=== PATIENT | female | born 1935 | race Two or more races ===

== ENCOUNTER 2021-06-29 07:40 | Inpatient (IN) | payer MEDICARE, OTHER ==
[~2021-06-29] VITALS: Ht 162.6 cm; Wt 65.3 kg
[~2021-06-29 07:40] MED LIST: AMLO5TAB88 PO; ATOR20TA65 PO; FURO40TA5 PO; GABA-529 PO; HYDR-4135 PO; ISOS60TA76 PO; LEVO125T8 PO; LOSA100T32 PO; NABU-137 PO; OCD PO; OMEP40CA20 PO; PRAV20TA57 PO; RANI150C12 PO; SITA1TAB8 PO
[2021-06-29] MEDS ORDERED: RIVA20TA PO (08:00)
[2021-06-29] MEDS ORDERED: [UNRECOGNIZED DRUG - OTHER] (08:00)
[2021-06-29] MEDS ORDERED: [UNRECOGNIZED DRUG - OTHER] (08:00)
[2021-06-29] MEDS ORDERED: [UNRECOGNIZED DRUG - OTHER] (08:00)
[2021-06-29] MEDS ORDERED: [UNRECOGNIZED DRUG - OTHER] (08:00)
[2021-06-29] MEDS ORDERED: MORPHINE SULFATE 4 MG/ML CPJ (NOT FOR IM USE) IV STA (08:19)
[2021-06-29] MEDS ORDERED: ONDANSETRON HCL 4MG/2ML INJ IV STA (08:19)
[2021-06-29 08:47] LABS: BASOPHILS % 0.6 % (0.0-2.0); EOSINOPHILS % 0.8 % (0.0-5.0); HEMATOCRIT. 24.7 % (36.0-48.0); LYMPHOCYTES % 8.9 % (20.0-50.0); MEAN CORPUSCULAR HEMOGLOBIN 28.6 pg (28.0-32.0); MEAN PLATELET VOLUME 8.9 fl (7.4-10.4); MONOCYTES % 5.4 % (2.0-8.0); NEUTROPHILS % 84.3 % (40.0-76.0); PLATELET 278 x1000/uL (130-400); RED BLOOD CELL COUNT 2.78 mill/uL (4.2-5.4); RED CELL DISTRIBUTION WIDTH 16.7 % (11.6-14.6)
[2021-06-29 08:58] LABS: CHLORIDE 98 mEq/L (98-107)
[2021-06-29] MEDS ORDERED: PIPERACILLIN/TAZ 3.375G PREMIX 50 ML IV ONE (10:15)
[2021-06-29] MEDS ORDERED: FUROSEMIDE 20MG/2ML VIAL IVP ONE (10:15)
[2021-06-29 10:41] LABS: AMYLASE 49 IU/L (25-115)
[2021-06-29] MEDS ORDERED: ASPIRIN 81MG TABLET PO ONE (11:15)
[2021-06-29] MEDS ORDERED: SODIUM POLYSTYRENE SULFONATE 15 G/60 ML BOT PO SCH (12:00)
[2021-06-29] MEDS: SODIUM CHLORIDE 0.9% 1,000 ML IV SCH (12:28)
[2021-06-29] MEDS ORDERED: FUROSEMIDE 40MG/4ML VIAL IVP NR (12:30)
[2021-06-29] MEDS ORDERED: PIPERACILLIN/TAZOBACTAM 3.375 G in DEXTROSE 5% WATER 50 ML IV SCH (14:00)
[2021-06-29 14:37] LABS: CLARITY URINE CLEAR (CLEAR); COLOR URINE YELLOW (YELLOW); KETONES URINE NEGATIVE (NEGATIVE); LEUKOCYTE ESTERASE URINE TRACE (NEGATIVE); NITRITE URINE NEGATIVE (NEGATIVE); OCCULT BLOOD URINE NEGATIVE (NEGATIVE); PROTEIN URINE TRACE (NEGATIVE); SPECIFIC GRAVITY URINE 1.015 (1.005-1.030); UROBILINOGEN URINE 0.2 E.U./dL (0.2-1.0)
[2021-06-29] MEDS ORDERED: DEXTROSE 50% WATER 50ML SYRINGE IV PRN (16:30)
[2021-06-29] MEDS: BLOOD SUGAR DIAGNOSTIC STRIP TEST SCH ×2 (17:59→23:23)
[2021-06-29] MEDS: INSULIN LISPRO 100 UNITS/ML SUBCUT SCH ×2 (18:20→23:26)
[2021-06-29] MEDS: PIPERACILLIN/TAZOBACTAM 3.375 G in DEXTROSE 5% WATER 50 ML IV SCH (21:14)
[2021-06-30] VITALS (9 sets, daily range): BP systolic 114–169; BP diastolic 50–69
[2021-06-30] MEDS ORDERED: NALOXONE HCL 0.4 MG/ML 1ML VIAL IV PRN (03:45)
[2021-06-30] MEDS: SODIUM CHLORIDE 0.9% 1,000 ML IV SCH (06:29)
[2021-06-30] MEDS: BLOOD SUGAR DIAGNOSTIC STRIP TEST SCH ×4 (07:18→21:00)
[2021-06-30] MEDS: INSULIN LISPRO 100 UNITS/ML SUBCUT SCH ×4 (07:20→22:03)
[2021-06-30] MEDS ORDERED: LIDOCAINE HCL 1% 10 MG/ML 10ML VIAL ONE (09:46)
[2021-06-30 09:55] LABS: BASOPHILS % 0.8 % (0.0-2.0); EOSINOPHILS % 3.9 % (0.0-5.0); HEMATOCRIT. 23.1 % (36.0-48.0); HEMOGLOBIN. 7.4 g/dL (12.0-16.0); MEAN CORPUSCULAR VOLUME 87.5 fL (81.0-99.0); MEAN PLATELET VOLUME 8.9 fl (7.4-10.4); MONOCYTES % 10.5 % (2.0-8.0); NEUTROPHILS % 70.8 % (40.0-76.0); PLATELET 283 x1000/uL (130-400); RED BLOOD CELL COUNT 2.64 mill/uL (4.2-5.4); RED CELL DISTRIBUTION WIDTH 16.7 % (11.6-14.6)
[2021-06-30] MEDS: PIPERACILLIN/TAZOBACTAM 3.375 G in DEXTROSE 5% WATER 50 ML IV SCH ×2 (10:56→21:59)
[2021-06-30] MEDS: MORPHINE SULFATE 2 MG/ML CPJ (NOT FOR IM USE) IV PRN (11:01)
[2021-06-30] MEDS ORDERED: LIDOCAINE 5% PATCH TOP SCH (13:00)
[2021-06-30] MEDS: ISOSORBIDE DINITRATE 10MG TABLET PO SCH ×2 (13:44→22:02)
[2021-06-30] MEDS: LIDOCAINE 5% PATCH TOP PRN (15:35)
[2021-07-01] VITALS (13 sets, daily range): BP systolic 132–153; BP diastolic 48–78
[2021-07-01] MEDS: SODIUM CHLORIDE 0.9% 1,000 ML IV SCH ×2 (02:04→23:10)
[2021-07-01] MEDS: BLOOD SUGAR DIAGNOSTIC STRIP TEST SCH ×4 (06:09→21:13)
[2021-07-01] MEDS: ISOSORBIDE DINITRATE 10MG TABLET PO SCH ×3 (06:17→22:53)
[2021-07-01 06:31] LABS: BASOPHILS % 0.7 % (0.0-2.0); EOSINOPHILS % 1.2 % (0.0-5.0); HEMATOCRIT. 22.9 % (36.0-48.0); HEMOGLOBIN. 7.7 g/dL (12.0-16.0); LYMPHOCYTES % 19.2 % (20.0-50.0); MEAN CORPUSCULAR VOLUME 86.9 fL (81.0-99.0); MEAN PLATELET VOLUME 8.8 fl (7.4-10.4); MONOCYTES % 11.9 % (2.0-8.0); PLATELET 295 x1000/uL (130-400); RED BLOOD CELL COUNT 2.64 mill/uL (4.2-5.4); RED CELL DISTRIBUTION WIDTH 16.4 % (11.6-14.6)
[2021-07-01] MEDS: INSULIN LISPRO 100 UNITS/ML SUBCUT SCH ×4 (07:20→21:00)
[2021-07-01] MEDS: PIPERACILLIN/TAZOBACTAM 3.375 G in DEXTROSE 5% WATER 50 ML IV SCH ×2 (10:35→22:07)
[2021-07-01 12:50] LABS: CREATINE KINASE 323 IU/L (26-192)
[2021-07-02] VITALS (14 sets, daily range): BP systolic 106–137; BP diastolic 42–93
[2021-07-02] MEDS: MORPHINE SULFATE 2 MG/ML CPJ (NOT FOR IM USE) IV PRN (00:44)
[2021-07-02] MEDS ORDERED: DILTIAZEM HCL 5MG/ML 5ML VIAL IV PRN (01:30)
[2021-07-02] MEDS ORDERED: DILTIAZEM HCL 30MG TABLET PO SCH ×2 (02:00→06:00)
[2021-07-02] MEDS: LIDOCAINE 5% PATCH TOP PRN (02:42)
[2021-07-02] MEDS: ONDANSETRON HCL 4MG/2ML INJ IV PRN ×2 (02:43→15:47)
[2021-07-02] MEDS: ISOSORBIDE DINITRATE 10MG TABLET PO SCH ×3 (06:31→22:00)
[2021-07-02] MEDS: BLOOD SUGAR DIAGNOSTIC STRIP TEST SCH ×4 (06:31→21:37)
[2021-07-02] MEDS: INSULIN LISPRO 100 UNITS/ML SUBCUT SCH ×4 (07:20→21:36)
[2021-07-02] MEDS ORDERED: LIDOCAINE HCL 1% 10 MG/ML 10ML VIAL ONE (08:13)
[2021-07-02] MEDS: METOPROLOL TARTRATE 50MG TABLET PO SCH ×2 (08:51→21:35)
[2021-07-02 09:11] LABS: ANTI-NUCLEAR ANTIBODIES DIRECT Positive (Negative)
[2021-07-02 10:50] LABS: HEMATOCRIT. 23.3 % (36.0-48.0); HEMOGLOBIN. 7.6 g/dL (12.0-16.0); MEAN CORPUSCULAR VOLUME 86.6 fL (81.0-99.0); MEAN PLATELET VOLUME 8.5 fl (7.4-10.4); PLATELET 289 x1000/uL (130-400); RED CELL DISTRIBUTION WIDTH 16.7 % (11.6-14.6)
[2021-07-02 10:54] LABS: INR 1.2; PARTIAL THROMBOPLASTIN TIME 25.9 sec (23.4-31.0); PROTHROMBIN TIME 13.2 sec (9.6-11.0)
[2021-07-02 11:19] LABS: PLATELET ESTIMATE NORMAL
[2021-07-02 12:15] LABS: HEPATITIS B SURFACE ANTIGEN NEGATIVE
[2021-07-02] MEDS: PIPERACILLIN/TAZOBACTAM 3.375 G in DEXTROSE 5% WATER 50 ML IV SCH ×2 (13:00→21:35)
[2021-07-02] MEDS ORDERED: HEPARIN 25,000 UNITS PREMIX 250 ML IV PRN (13:30)
[2021-07-02] MEDS ORDERED: HEPARIN 5000 UNITS/ML VIAL IV PRN ×2 (13:30)
[2021-07-02] MEDS ORDERED: HEPARIN 5000 UNITS/ML VIAL IV SCH (14:00)
[2021-07-02 16:18] LABS: BASOPHILS % 0.1 % (0.0-2.0); EOSINOPHILS % 0.1 % (0.0-5.0); HEMATOCRIT. 23.3 % (36.0-48.0); HEMOGLOBIN. 7.6 g/dL (12.0-16.0); LYMPHOCYTES % 9.1 % (20.0-50.0); MEAN CORPUSCULAR HEMOGLOBIN 28.5 pg (28.0-32.0); MEAN CORPUSCULAR VOLUME 87.1 fL (81.0-99.0); MEAN PLATELET VOLUME 8.6 fl (7.4-10.4); MONOCYTES % 8.3 % (2.0-8.0); NEUTROPHILS % 82.4 % (40.0-76.0); PLATELET 270 x1000/uL (130-400); RED BLOOD CELL COUNT 2.68 mill/uL (4.2-5.4); RED CELL DISTRIBUTION WIDTH 16.7 % (11.6-14.6)
[2021-07-02 16:21] LABS: INR 1.3; PROTHROMBIN TIME 13.5 sec (9.6-11.0)
[2021-07-02] MEDS: SODIUM CHLORIDE 0.9% 1,000 ML IV SCH (17:51)
[2021-07-02] MEDS ORDERED: PANTOPRAZOLE SODIUM 40 MG/VIAL IV SCH (18:00)
[2021-07-02] MEDS: PANTOPRAZOLE SODIUM 40 MG/VIAL IV SCH (21:37)
[2021-07-03] VITALS (13 sets, daily range): BP systolic 109–140; BP diastolic 32–64
[2021-07-03] MEDS: ISOSORBIDE DINITRATE 10MG TABLET PO SCH ×3 (06:00→16:13)
[2021-07-03] MEDS: BLOOD SUGAR DIAGNOSTIC STRIP TEST SCH ×4 (06:50→21:24)
[2021-07-03 07:05] LABS: BASOPHILS % 0.2 % (0.0-2.0); EOSINOPHILS % 0.1 % (0.0-5.0); HEMATOCRIT. 29.1 % (36.0-48.0); HEMOGLOBIN. 9.6 g/dL (12.0-16.0); LYMPHOCYTES % 12.6 % (20.0-50.0); MEAN CORPUSCULAR HEMOGLOBIN 29.9 pg (28.0-32.0); MEAN CORPUSCULAR VOLUME 91.3 fL (81.0-99.0); MEAN PLATELET VOLUME 9.3 fl (7.4-10.4); MONOCYTES % 9.3 % (2.0-8.0); NEUTROPHILS % 77.8 % (40.0-76.0); PLATELET 296 x1000/uL (130-400); RED BLOOD CELL COUNT 3.19 mill/uL (4.2-5.4); RED CELL DISTRIBUTION WIDTH 17.1 % (11.6-14.6)
[2021-07-03 07:08] LABS: CHLORIDE 106 mEq/L (98-107)
[2021-07-03] MEDS: INSULIN LISPRO 100 UNITS/ML SUBCUT SCH ×4 (07:20→21:26)
[2021-07-03] MEDS: PANTOPRAZOLE SODIUM 40 MG/VIAL IV SCH ×2 (08:35→21:24)
[2021-07-03] MEDS: METOPROLOL TARTRATE 50MG TABLET PO SCH (08:35)
[2021-07-03] MEDS: PIPERACILLIN/TAZOBACTAM 3.375 G in DEXTROSE 5% WATER 50 ML IV SCH ×2 (08:35→21:25)
[2021-07-03 11:47] LABS: INR 1.4; PROTHROMBIN TIME 14.6 sec (9.6-11.0)
[2021-07-03] MEDS ORDERED: LIDOCAINE HCL 1% 10 MG/ML 10ML VIAL ONE (13:33)
[2021-07-03] MEDS ORDERED: ETOMIDATE 2MG/ML 10ML VIAL IV ONE (13:33)
[2021-07-03] MEDS ORDERED: EPHEDRINE SULFATE 50MG/ML VIAL ONE (13:39)
[2021-07-03] MEDS: SODIUM CHLORIDE 0.9% 1,000 ML IV SCH (15:37)
[2021-07-03] MEDS: SUCRALFATE 1 G/10 ML UDC PO SCH ×2 (16:17→21:24)
[2021-07-03] MEDS: METOPROLOL TARTRATE 25MG TABLET PO SCH (21:00)
[2021-07-04] VITALS (11 sets, daily range): BP systolic 107–147; BP diastolic 40–111
[2021-07-04 06:18] LABS: BASOPHILS % 0.5 % (0.0-2.0); EOSINOPHILS % 1.9 % (0.0-5.0); HEMATOCRIT. 30.7 % (36.0-48.0); LYMPHOCYTES % 18.9 % (20.0-50.0); MEAN CORPUSCULAR HEMOGLOBIN 28.4 pg (28.0-32.0); MEAN CORPUSCULAR VOLUME 87.1 fL (81.0-99.0); MEAN PLATELET VOLUME 8.6 fl (7.4-10.4); MONOCYTES % 11.3 % (2.0-8.0); NEUTROPHILS % 67.4 % (40.0-76.0); PLATELET 232 x1000/uL (130-400); RED BLOOD CELL COUNT 3.52 mill/uL (4.2-5.4); RED CELL DISTRIBUTION WIDTH 16.5 % (11.6-14.6)
[2021-07-04] MEDS: SUCRALFATE 1 G/10 ML UDC PO SCH ×4 (06:18→20:52)
[2021-07-04] MEDS: BLOOD SUGAR DIAGNOSTIC STRIP TEST SCH ×4 (06:24→20:54)
[2021-07-04 06:30] LABS: CHLORIDE 104 mEq/L (98-107)
[2021-07-04] MEDS: INSULIN LISPRO 100 UNITS/ML SUBCUT SCH ×4 (07:20→20:54)
[2021-07-04] MEDS: METOPROLOL TARTRATE 25MG TABLET PO SCH ×2 (08:20→20:54)
[2021-07-04] MEDS: ISOSORBIDE DINITRATE 10MG TABLET PO SCH ×3 (08:38→16:38)
[2021-07-04] MEDS: PIPERACILLIN/TAZOBACTAM 3.375 G in DEXTROSE 5% WATER 50 ML IV SCH ×2 (08:38→21:22)
[2021-07-04] MEDS: PANTOPRAZOLE SODIUM 40 MG/VIAL IV SCH ×2 (08:38→20:52)
[2021-07-04] MEDS: SODIUM CHLORIDE 0.9% 1,000 ML IV SCH (08:38)
[2021-07-04] MEDS: DIPHENOXYLATE/ATROPINE 2.5/0.025MG TABLET PO PRN (20:52)
[2021-07-05] VITALS (14 sets, daily range): BP systolic 117–147; BP diastolic 40–97
[2021-07-05] MEDS: SUCRALFATE 1 G/10 ML UDC PO SCH ×4 (05:51→20:01)
[2021-07-05] MEDS: BLOOD SUGAR DIAGNOSTIC STRIP TEST SCH ×4 (05:51→20:02)
[2021-07-05] MEDS: SODIUM CHLORIDE 0.9% 1,000 ML IV SCH (05:51)
[2021-07-05 07:08] LABS: BASOPHILS % 1.1 % (0.0-2.0); EOSINOPHILS % 3.9 % (0.0-5.0); HEMATOCRIT. 28.7 % (36.0-48.0); HEMOGLOBIN. 9.5 g/dL (12.0-16.0); LYMPHOCYTES % 14.9 % (20.0-50.0); MEAN CORPUSCULAR VOLUME 88.2 fL (81.0-99.0); MEAN PLATELET VOLUME 8.7 fl (7.4-10.4); MONOCYTES % 8.5 % (2.0-8.0); NEUTROPHILS % 71.6 % (40.0-76.0); PLATELET 236 x1000/uL (130-400); RED BLOOD CELL COUNT 3.26 mill/uL (4.2-5.4); RED CELL DISTRIBUTION WIDTH 16.9 % (11.6-14.6)
[2021-07-05 07:20] LABS: CHLORIDE 102 mEq/L (98-107)
[2021-07-05] MEDS: INSULIN LISPRO 100 UNITS/ML SUBCUT SCH ×4 (07:20→22:18)
[2021-07-05] MEDS: METOPROLOL TARTRATE 25MG TABLET PO SCH ×2 (08:28→20:01)
[2021-07-05] MEDS: ISOSORBIDE DINITRATE 10MG TABLET PO SCH ×3 (08:28→17:35)
[2021-07-05] MEDS: PANTOPRAZOLE SODIUM 40 MG/VIAL IV SCH ×2 (08:28→20:01)
[2021-07-05] MEDS: GUAIFENESIN 600MG ER TABLET PO SCH ×2 (12:25→22:17)
[2021-07-05] MEDS: KCL 20MEQ/100ML PREMIX 100 ML IV SCH ×2 (13:52→19:13)
[2021-07-05] MEDS: DIPHENOXYLATE/ATROPINE 2.5/0.025MG TABLET PO PRN (20:01)
[2021-07-06] VITALS (12 sets, daily range): BP systolic 124–159; BP diastolic 52–97
[2021-07-06] MEDS: SODIUM CHLORIDE 0.9% 1,000 ML IV SCH ×2 (01:51→20:42)
[2021-07-06 05:09] LABS: BASOPHILS % 0.9 % (0.0-2.0); EOSINOPHILS % 2.9 % (0.0-5.0); HEMATOCRIT. 29.3 % (36.0-48.0); HEMOGLOBIN. 9.5 g/dL (12.0-16.0); LYMPHOCYTES % 14.6 % (20.0-50.0); MEAN CORPUSCULAR HEMOGLOBIN 28.8 pg (28.0-32.0); MEAN CORPUSCULAR VOLUME 88.4 fL (81.0-99.0); MEAN PLATELET VOLUME 8.6 fl (7.4-10.4); MONOCYTES % 7.1 % (2.0-8.0); NEUTROPHILS % 74.5 % (40.0-76.0); PLATELET 226 x1000/uL (130-400); RED BLOOD CELL COUNT 3.32 mill/uL (4.2-5.4); RED CELL DISTRIBUTION WIDTH 17.2 % (11.6-14.6)
[2021-07-06 05:34] LABS: CHLORIDE 108 mEq/L (98-107)
[2021-07-06] MEDS: BLOOD SUGAR DIAGNOSTIC STRIP TEST SCH ×4 (06:07→20:22)
[2021-07-06] MEDS: INSULIN LISPRO 100 UNITS/ML SUBCUT SCH ×4 (06:07→20:42)
[2021-07-06] MEDS: SUCRALFATE 1 G/10 ML UDC PO SCH ×4 (06:07→20:22)
[2021-07-06] MEDS: ACETAMINOPHEN 325MG TABLET PO PRN ×2 (06:17→20:22)
[2021-07-06] MEDS: PANTOPRAZOLE SODIUM 40 MG/VIAL IV SCH ×2 (08:05→20:22)
[2021-07-06] MEDS: GUAIFENESIN 600MG ER TABLET PO SCH ×2 (08:05→20:22)
[2021-07-06] MEDS: ISOSORBIDE DINITRATE 10MG TABLET PO SCH ×3 (08:06→16:09)
[2021-07-06] MEDS: METOPROLOL TARTRATE 25MG TABLET PO SCH ×2 (08:06→20:22)
[2021-07-06] MEDS: NYSTATIN POWDER 15GM TOP SCH ×2 (15:13→20:21)
[2021-07-06] MEDS: ONDANSETRON HCL 4MG/2ML INJ IV PRN (15:48)
[2021-07-07] VITALS (12 sets, daily range): BP systolic 130–155; BP diastolic 56–92
[2021-07-07] MEDS: INSULIN LISPRO 100 UNITS/ML SUBCUT SCH ×4 (05:58→20:45)
[2021-07-07] MEDS: BLOOD SUGAR DIAGNOSTIC STRIP TEST SCH ×4 (05:58→20:45)
[2021-07-07] MEDS: SUCRALFATE 1 G/10 ML UDC PO SCH ×4 (06:07→20:44)
[2021-07-07 08:02] LABS: BASOPHILS % 0.9 % (0.0-2.0); EOSINOPHILS % 5.3 % (0.0-5.0); HEMATOCRIT. 29.6 % (36.0-48.0); HEMOGLOBIN. 9.6 g/dL (12.0-16.0); LYMPHOCYTES % 21.2 % (20.0-50.0); MEAN CORPUSCULAR HEMOGLOBIN 28.9 pg (28.0-32.0); MEAN CORPUSCULAR VOLUME 88.5 fL (81.0-99.0); MEAN PLATELET VOLUME 8.8 fl (7.4-10.4); MONOCYTES % 6.3 % (2.0-8.0); NEUTROPHILS % 66.3 % (40.0-76.0); PLATELET 238 x1000/uL (130-400); RED BLOOD CELL COUNT 3.34 mill/uL (4.2-5.4); RED CELL DISTRIBUTION WIDTH 17.2 % (11.6-14.6)
[2021-07-07] MEDS: ISOSORBIDE DINITRATE 10MG TABLET PO SCH ×3 (09:50→16:21)
[2021-07-07] MEDS: GUAIFENESIN 600MG ER TABLET PO SCH ×2 (09:50→20:44)
[2021-07-07] MEDS: METOPROLOL TARTRATE 25MG TABLET PO SCH ×2 (09:50→20:44)
[2021-07-07] MEDS: NYSTATIN POWDER 15GM TOP SCH ×3 (09:51→16:21)
[2021-07-07] MEDS: PANTOPRAZOLE SODIUM 40 MG/VIAL IV SCH ×2 (10:04→20:44)
[2021-07-07 12:37] LABS: INR 1.1; PARTIAL THROMBOPLASTIN TIME 27.5 sec (23.4-31.0); PROTHROMBIN TIME 11.5 sec (9.6-11.0)
[2021-07-07] MEDS: SODIUM CHLORIDE 0.9% 1,000 ML IV SCH (16:25)
[2021-07-08] VITALS (13 sets, daily range): BP systolic 137–179; BP diastolic 60–87
[2021-07-08] MEDS: SUCRALFATE 1 G/10 ML UDC PO SCH ×4 (06:52→20:39)
[2021-07-08] MEDS: BLOOD SUGAR DIAGNOSTIC STRIP TEST SCH ×4 (06:52→20:34)
[2021-07-08] MEDS: INSULIN LISPRO 100 UNITS/ML SUBCUT SCH ×4 (07:20→20:46)
[2021-07-08 08:21] LABS: BASOPHILS % 0.8 % (0.0-2.0); EOSINOPHILS % 3.4 % (0.0-5.0); HEMATOCRIT. 30.3 % (36.0-48.0); HEMOGLOBIN. 9.6 g/dL (12.0-16.0); LYMPHOCYTES % 13.2 % (20.0-50.0); MEAN CORPUSCULAR HEMOGLOBIN 29.1 pg (28.0-32.0); MEAN CORPUSCULAR VOLUME 92.1 fL (81.0-99.0); MEAN PLATELET VOLUME 9.1 fl (7.4-10.4); MONOCYTES % 6.3 % (2.0-8.0); NEUTROPHILS % 76.3 % (40.0-76.0); PLATELET 242 x1000/uL (130-400); RED BLOOD CELL COUNT 3.29 mill/uL (4.2-5.4); RED CELL DISTRIBUTION WIDTH 17.9 % (11.6-14.6)
[2021-07-08] MEDS: GUAIFENESIN 600MG ER TABLET PO SCH ×2 (08:43→20:39)
[2021-07-08] MEDS: ISOSORBIDE DINITRATE 10MG TABLET PO SCH ×3 (08:43→17:28)
[2021-07-08] MEDS: PANTOPRAZOLE SODIUM 40 MG/VIAL IV SCH ×2 (08:43→20:39)
[2021-07-08] MEDS: METOPROLOL TARTRATE 25MG TABLET PO SCH ×2 (08:44→20:39)
[2021-07-08] MEDS: NYSTATIN POWDER 15GM TOP SCH ×3 (08:44→17:29)
[2021-07-08] MEDS: LIDOCAINE 5% PATCH TOP PRN (13:47)
[2021-07-09] VITALS (17 sets, daily range): BP systolic 150–186; BP diastolic 60–92
[2021-07-09] MEDS ORDERED: ZOLPIDEM TARTRATE 5MG TABLET PO PRN (04:00)
[2021-07-09] MEDS: CLONIDINE 0.1MG TABLET PO PRN ×2 (04:04→10:15)
[2021-07-09] MEDS: LIDOCAINE 5% PATCH TOP PRN (04:18)
[2021-07-09] MEDS: BLOOD SUGAR DIAGNOSTIC STRIP TEST SCH (06:21)
[2021-07-09] MEDS: SUCRALFATE 1 G/10 ML UDC PO SCH (06:21)
[2021-07-09 06:34] LABS: BASOPHILS % 0.7 % (0.0-2.0); EOSINOPHILS % 3.4 % (0.0-5.0); HEMATOCRIT. 29.5 % (36.0-48.0); HEMOGLOBIN. 9.6 g/dL (12.0-16.0); LYMPHOCYTES % 14.3 % (20.0-50.0); MEAN CORPUSCULAR HEMOGLOBIN 29.1 pg (28.0-32.0); MEAN CORPUSCULAR VOLUME 89.4 fL (81.0-99.0); MONOCYTES % 6.4 % (2.0-8.0); NEUTROPHILS % 75.2 % (40.0-76.0); PLATELET 258 x1000/uL (130-400); RED CELL DISTRIBUTION WIDTH 17.9 % (11.6-14.6)
[2021-07-09] MEDS ORDERED: CEFAZOLIN 1000MG PREMIX 50 ML IV ONE ×2 (07:00→07:43)
[2021-07-09] MEDS: INSULIN LISPRO 100 UNITS/ML SUBCUT SCH (07:20)
[2021-07-09] MEDS ORDERED: FENTANYL CITRATE/PF 50MCG/ML 2ML VIAL ONE (07:43)
[2021-07-09] MEDS ORDERED: LIDOCAINE HCL 1% 20ML VIAL (Pyxis) INJ ONE (07:44)
[2021-07-09] MEDS ORDERED: FENTANYL CITRATE/PF 50MCG/ML 2ML VIAL IV ONE (08:30)
[2021-07-09] MEDS: NYSTATIN POWDER 15GM TOP SCH (09:00)
[2021-07-09] MEDS ORDERED: SUCR1ORA15 PO (10:11)
[2021-07-09] MEDS ORDERED: ISOS10TA2 PO (10:11)
[2021-07-09] MEDS: PANTOPRAZOLE SODIUM 40 MG/VIAL IV SCH (10:15)
[2021-07-09] MEDS: ISOSORBIDE DINITRATE 10MG TABLET PO SCH (10:15)
[2021-07-09] MEDS: GUAIFENESIN 600MG ER TABLET PO SCH (10:15)
[2021-07-09] MEDS: METOPROLOL TARTRATE 25MG TABLET PO SCH (10:16)
== END 2021-07-09 11:30 | disposition home health service (06) | DRG 190 ==
LOC: ER 07:40 → MICUSO 11:26 → ENRESERV 21:20 → CANRESERV 21:20 → 3WST 06-30 03:40
PROVIDERS: ADMIT Internal Medicine; ATTEND Internal Medicine
PROC: 02HV33Z Insertion of Infusion Device into Superior Vena Cava, Percutaneous Approach (ICD-10-PCS; 2021-07-02)
PROC: B548ZZA Ultrasonography of Superior Vena Cava, Guidance (ICD-10-PCS; 2021-07-02)
PROC: 30233N1 Transfusion of Nonautologous Red Blood Cells into Peripheral Vein, Percutaneous Approach (ICD-10-PCS; 2021-07-02)
PROC: 5A1D70Z Performance of Urinary Filtration, Intermittent, Less than 6 Hours Per Day (ICD-10-PCS; 2021-07-02)
PROC: 0DB78ZX Excision of Stomach, Pylorus, Via Natural or Artificial Opening Endoscopic, Diagnostic (ICD-10-PCS; principal; 2021-07-03)
PROC: 5A1D70Z Performance of Urinary Filtration, Intermittent, Less than 6 Hours Per Day (ICD-10-PCS; 2021-07-03)
PROC: 5A1D70Z Performance of Urinary Filtration, Intermittent, Less than 6 Hours Per Day (ICD-10-PCS; 2021-07-05)
PROC: 5A1D70Z Performance of Urinary Filtration, Intermittent, Less than 6 Hours Per Day (ICD-10-PCS; 2021-07-07)
PROC: 02PYX3Z Removal of Infusion Device from Great Vessel, External Approach (ICD-10-PCS; 2021-07-09)
PROC: 0JH63XZ Insertion of Tunneled Vascular Access Device into Chest Subcutaneous Tissue and Fascia, Percutaneous Approach (ICD-10-PCS; 2021-07-09)
PROC: 02HV33Z Insertion of Infusion Device into Superior Vena Cava, Percutaneous Approach (ICD-10-PCS; 2021-07-09)
PROC: B518ZZA Fluoroscopy of Superior Vena Cava, Guidance (ICD-10-PCS; 2021-07-09)
PROC: B548ZZA Ultrasonography of Superior Vena Cava, Guidance (ICD-10-PCS; 2021-07-09)
PROC: 5A1D70Z Performance of Urinary Filtration, Intermittent, Less than 6 Hours Per Day (ICD-10-PCS; 2021-07-09)
DX: I21.4 Non-ST elevation (NSTEMI) myocardial infarction (principal); N17.0 Acute kidney failure with tubular necrosis; J96.01 Acute respiratory failure with hypoxia; I50.43 Acute on chronic combined systolic (congestive) and diastolic (congestive) heart failure; E44.0 Moderate protein-calorie malnutrition; K29.61 Other gastritis with bleeding; K81.0 Acute cholecystitis; J18.9 Pneumonia, unspecified organism; D68.9 Coagulation defect, unspecified; N18.4 Chronic kidney disease, stage 4 (severe); E87.1 Hypo-osmolality and hyponatremia; I48.0 Paroxysmal atrial fibrillation; I13.0 Hypertensive heart and chronic kidney disease with heart failure and stage 1 through stage 4 chronic kidney disease, or unspecified chronic kidney disease; I50.82 Biventricular heart failure; Z20.822 Contact with and (suspected) exposure to COVID-19; N83.209 Unspecified ovarian cyst, unspecified side; E78.5 Hyperlipidemia, unspecified; E87.5 Hyperkalemia; M54.50 Low back pain, unspecified; E78.00 Pure hypercholesterolemia, unspecified; K57.90 Diverticulosis of intestine, part unspecified, without perforation or abscess without bleeding; B36.9 Superficial mycosis, unspecified; D50.0 Iron deficiency anemia secondary to blood loss (chronic); E11.22 Type 2 diabetes mellitus with diabetic chronic kidney disease; Z79.01 Long term (current) use of anticoagulants; Z79.899 Other long term (current) drug therapy; Z79.84 Long term (current) use of oral hypoglycemic drugs; Z79.890 Hormone replacement therapy; Z82.49 Family history of ischemic heart disease and other diseases of the circulatory system; Z68.24 Body mass index [BMI] 24.0-24.9, adult; I25.2 Old myocardial infarction; Z79.82 Long term (current) use of aspirin; I27.21 Secondary pulmonary arterial hypertension
CPT/HCPCS: 36415; 36556; 36558; 36589; 71045; 71250; 74018; 74176; 74181; 76770; 76937; 77001; 78227; 80048; 80053; 80076; 81003; 82040; 82150; 82248; 82270; 82533; 82550; 82570; 82962; 83605; 83615; 83880; 83930; 84134; 84300; 84443; 84484; 85025; 86038; 86160; 86705; 86709; 86803; 86850; 86900; 86920; 87015; 87045; 87340; 87426; 87427; 87449; 88305; 88312; 88313; 93005; 93306; 97162; 97530; 99152; 99153; 99291; A6261; A9537; C1750; C1752; C1769; C9113; J0690; J1642; J1644; J1815; J1940; J2270; J2405; J2543; J3010; J3480; J3490; J7040; J7060; P9016; G0500

== ENCOUNTER → 2023-09-01 | Outpatient (CLI) | payer MEDICARE, MEDICAID ==
[~2023-09-01] MED LIST changes: +AMLO10TA80 PO; -GABA-529 PO; +HYDR-4134 PO; -HYDR-4135 PO; +ISOS10TA2 PO; +ISOS30TA91 MT; -ISOS60TA76 PO; -LOSA100T32 PO; -PRAV20TA57 PO; +SUCR1ORA15 PO
== END | disposition home or self-care (01) ==
LOC: US 08:29
PROVIDERS: ATTEND Internal Medicine
DX: M19.012 Primary osteoarthritis, left shoulder (principal); M17.12 Unilateral primary osteoarthritis, left knee; M25.511 Pain in right shoulder; M79.89 Other specified soft tissue disorders
CPT/HCPCS: 73030; 73560; 93970